=== PATIENT | male | born 2000 | race Caucasian/White ===

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

== ENCOUNTER 2020-08-22 10:58 | Emergency (ER) | payer OTHER ==
[~2020-08-22] VITALS: Wt 95.3 kg
[2020-08-22] MEDS ORDERED: CEFDINIR300 MG PO (12:23)
== END 2020-08-22 12:42 | disposition home or self-care (01) ==
LOC: ED 10:58
DX: H66.91 Otitis media, unspecified, right ear (principal); F17.200 Nicotine dependence, unspecified, uncomplicated; Z96.22 Myringotomy tube(s) status; Z88.1 Allergy status to other antibiotic agents; Z79.899 Other long term (current) drug therapy; Z98.890 Other specified postprocedural states

== ENCOUNTER 2021-01-28 17:20 | Emergency (ER) | payer OTHER ==
[~2021-01-28] VITALS: Ht 185.4 cm; Wt 90.7 kg
[~2021-01-28 17:20] MED LIST changes: +CEFDINIR300 MG PO
[2021-01-28] MEDS ORDERED: PROAIR HFA8.5 GM INH (18:24)
[2021-01-28] MEDS ORDERED: AMOXICILLIN875 MG PO (18:24)
== END 2021-01-28 19:19 | disposition home or self-care (01) ==
LOC: ED 17:20
DX: H66.91 Otitis media, unspecified, right ear (principal); Z20.822 Contact with and (suspected) exposure to COVID-19; J45.909 Unspecified asthma, uncomplicated

== ENCOUNTER 2021-04-16 19:43 | Emergency (ER) | payer SELFPAY ==
[~2021-04-16] VITALS: Ht 185.4 cm; Wt 92.5 kg
[~2021-04-16 19:43] MED LIST changes: +AMOXICILLIN875 MG PO
== END 2021-04-16 23:10 | disposition home or self-care (01) ==
LOC: ED 19:43
DX: S20.211A Contusion of right front wall of thorax, initial encounter (principal); Z88.1 Allergy status to other antibiotic agents; F17.200 Nicotine dependence, unspecified, uncomplicated; W01.0XXA Fall on same level from slipping, tripping and stumbling without subsequent striking against object, initial encounter; Y93.89 Activity, other specified; Y92.89 Other specified places as the place of occurrence of the external cause; Y99.8 Other external cause status

== ENCOUNTER 2021-06-13 10:07 | Emergency (ER) | payer OTHER ==
[~2021-06-13] VITALS: Wt 90.7 kg
[2021-06-13] MEDS ORDERED: SEPTDS PO (10:56)
== END 2021-06-13 11:41 | disposition home or self-care (01) ==
LOC: ED 10:07
DX: L08.9 Local infection of the skin and subcutaneous tissue, unspecified (principal); Z88.1 Allergy status to other antibiotic agents

== ENCOUNTER 2021-08-24 17:12 | Emergency (ER) | payer OTHER ==
[~2021-08-24] VITALS: Wt 90.7 kg
[~2021-08-24 17:12] MED LIST changes: +SEPTDS PO
== END 2021-08-24 17:36 | disposition left against medical advice (07) ==
LOC: ED 17:12
DX: T65.91XA Toxic effect of unspecified substance, accidental (unintentional), initial encounter (principal); Z53.21 Procedure and treatment not carried out due to patient leaving prior to being seen by health care provider; Y92.89 Other specified places as the place of occurrence of the external cause

== ENCOUNTER 2021-12-22 19:56 | Emergency (ER) | payer OTHER ==
[~2021-12-22] VITALS: Ht 185.4 cm; Wt 72.6 kg
[2021-12-22 21:36] LABS: BASO % 0.2 % (0.0-1.0); EOS # 0.2 10*3/uL (0.0-0.4); HEMATOCRIT 44.3 % (42.0-52.0); LYMPH # 2.8 10*3/uL (1.3-4.4); LYMPH % 30.5 % (27.0-41.0); MEAN CELL VOLUME 85.4 fl (80.0-94.0); MEAN CORPUSCULAR HGB 28.9 pg (27.0-31.0); MEAN CORPUSCULAR HGB CONC 33.9 g/dl (33.0-37.0); MONO # 0.7 10*3/uL (0.1-1.0); MONO % 7.8 % (3.0-9.0); NEUT # 5.5 10*3/uL (2.3-7.9); NEUT % 59.4 % (47.0-73.0); PLATELET COUNT AUTOMATED 239 10*3/uL (130-400); RED BLOOD COUNT 5.19 10*6/uL (4.50-5.90); RED CELL DISTRI WIDTH 12.6 % (0-14.5); WHITE BLOOD COUNT 9.2 10*3/uL (4.8-10.8)
[2021-12-22 21:46] LABS: ALKALINE PHOSPHATASE 115 U/L (45-117); BUN 12 mg/dl (7-24); CHLORIDE 109 mmol/L (98-107); CREATININE 0.59 mg/dL (0.70-1.30); POTASSIUM 3.9 mmol/L (3.5-5.1); SGOT/AST 9 IU/L (3-35); SGPT/ALT 21 U/L (12-78); SODIUM 140 mmol/L (136-145); TOTAL PROTEIN 7.1 gm/dL (6.4-8.2)
[2021-12-23] MEDS ORDERED: VIBRAMYCIN100 MG PO (00:03)
== END 2021-12-22 20:30 | disposition home or self-care (01) ==
LOC: ED 19:56
PROVIDERS: Physician Assistant
DX: J18.9 Pneumonia, unspecified organism (principal); Z20.822 Contact with and (suspected) exposure to COVID-19; Z88.1 Allergy status to other antibiotic agents

== ENCOUNTER 2022-04-09 10:48 | Emergency (ER) | payer OTHER ==
[~2022-04-09 10:48] MED LIST changes: +VIBRAMYCIN100 MG PO
== END 2022-04-09 11:49 | disposition left against medical advice (07) ==
LOC: ED 10:48
DX: M54.6 Pain in thoracic spine (principal); Z53.21 Procedure and treatment not carried out due to patient leaving prior to being seen by health care provider

== ENCOUNTER 2022-05-13 04:52 | Emergency (ER) | payer OTHER | END 2022-05-13 08:35 | disposition home or self-care (01) | LOC: ED 04:52 | DX: F15.10 Other stimulant abuse, uncomplicated (principal); Z88.1 Allergy status to other antibiotic agents ==

== ENCOUNTER 2022-05-21 23:21 | Emergency (ER) | payer OTHER | END 2022-05-22 00:20 | disposition left against medical advice (07) | LOC: ED 23:21 | DX: F10.129 Alcohol abuse with intoxication, unspecified (principal); K21.9 Gastro-esophageal reflux disease without esophagitis; J45.909 Unspecified asthma, uncomplicated; Z88.1 Allergy status to other antibiotic agents; Z98.890 Other specified postprocedural states; Y90.0 Blood alcohol level of less than 20 mg/100 ml ==

== ENCOUNTER 2022-09-27 16:51 | Emergency (ER) | payer OTHER ==
[~2022-09-27] VITALS: Wt 65.8 kg
[2022-09-28 06:08] LABS: HBSAG Negative (Negative); HEP B CORE AB, IGM Negative (Negative); HEPATITIS C ANTIBODY Non Reactive (Non Reactive)
== END 2022-09-27 17:47 | disposition home or self-care (01) ==
LOC: ED 16:51
PROVIDERS: Student in an Organized Health Care Education/Training Program
DX: F41.9 Anxiety disorder, unspecified (principal); J45.909 Unspecified asthma, uncomplicated; K21.9 Gastro-esophageal reflux disease without esophagitis; Z88.8 Allergy status to other drugs, medicaments and biological substances; Z98.890 Other specified postprocedural states

== ENCOUNTER 2023-04-13 15:35 | Emergency (ER) | payer OTHER | END 2023-04-13 16:09 | LOC: ED 15:35 | DX: F42.4 Excoriation (skin-picking) disorder (principal); F41.9 Anxiety disorder, unspecified; J45.909 Unspecified asthma, uncomplicated; Z88.1 Allergy status to other antibiotic agents; Z98.890 Other specified postprocedural states ==

== ENCOUNTER 2023-05-09 19:48 | Emergency (ER) | payer OTHER ==
[~2023-05-09] VITALS: Ht 2225 cm; Wt 86.2 kg
[2023-05-09] MEDS ORDERED: SEPTDS PO (20:07)
[2023-05-09] MEDS ORDERED: Sulfamethoxazole/Trimethopri 1 TAB TAB PO ONE (20:10)
== END 2023-05-09 20:49 | disposition home or self-care (01) ==
LOC: ED 19:48
DX: L08.9 Local infection of the skin and subcutaneous tissue, unspecified (principal); R23.8 Other skin changes; Z96.22 Myringotomy tube(s) status; Z98.890 Other specified postprocedural states

== ENCOUNTER → 2023-06-03 | Emergency (ER) | payer OTHER ==
[~2023-06-03] VITALS: Ht 185.4 cm; Wt 90.7 kg
== END ==
LOC: ED 17:39
DX: T40.411A Poisoning by fentanyl or fentanyl analogs, accidental (unintentional), initial encounter (principal); J45.909 Unspecified asthma, uncomplicated; K21.9 Gastro-esophageal reflux disease without esophagitis; Z98.890 Other specified postprocedural states; Y92.009 Unspecified place in unspecified non-institutional (private) residence as the place of occurrence of the external cause

== ENCOUNTER 2023-06-07 07:18 | Emergency (ER) | payer OTHER ==
[~2023-06-07] VITALS: Ht 185.4 cm; Wt 90.7 kg
== END 2023-06-07 07:38 | disposition left against medical advice (07) ==
LOC: ED 07:18
DX: S60.862A Insect bite (nonvenomous) of left wrist, initial encounter (principal); Z53.21 Procedure and treatment not carried out due to patient leaving prior to being seen by health care provider; W57.XXXA Bitten or stung by nonvenomous insect and other nonvenomous arthropods, initial encounter; Y93.89 Activity, other specified; Y92.89 Other specified places as the place of occurrence of the external cause; Y99.8 Other external cause status

== ENCOUNTER 2023-06-16 08:22 | Emergency (ER) | payer OTHER ==
[~2023-06-16] VITALS: Ht 180.3 cm; Wt 81.6 kg
== END 2023-06-16 09:10 | disposition home or self-care (01) ==
LOC: ED 08:22
DX: R45.1 Restlessness and agitation (principal); Z04.6 Encounter for general psychiatric examination, requested by authority; J45.909 Unspecified asthma, uncomplicated; K21.9 Gastro-esophageal reflux disease without esophagitis; Z98.890 Other specified postprocedural states

== ENCOUNTER 2024-05-24 09:12 | Emergency (ER) | payer OTHER ==
[~2024-05-24] VITALS: Ht 185.4 cm; Wt 90.7 kg
[2024-05-24] MEDS ORDERED: diazePAM 10 MG/2 ML SYR IV ONE (09:25)
[2024-05-24] MEDS ORDERED: SODIUM CHLORIDE 0.9% 1,000 ML IV ONE ×2 (09:25→10:50)
[2024-05-24 09:37] LABS: HEMATOCRIT 40.9 % (42.0-52.0); MANUAL DIFF REFLEX YES; MEAN CELL VOLUME 86.8 fl (80.0-94.0); MEAN CORPUSCULAR HGB 29.7 pg (27.0-31.0); MEAN CORPUSCULAR HGB CONC 34.2 g/dl (33.0-37.0); MEAN PLATELET VOLUME 9.7 fl (9.6-12.3); PLATELET COUNT AUTOMATED 217 10*3/uL (130-400); RED BLOOD COUNT 4.71 10*6/uL (4.50-5.90); RED CELL DISTRI WIDTH 11.9 % (0-14.5)
[2024-05-24] MEDS ORDERED: Ondansetron Hydrochloride 4 MG/2 ML VIAL IV ONE (09:50)
[2024-05-24 10:04] LABS: PLATELET SUFFICIENCY NORMAL (NORMAL); TOTAL CELLS COUNTED 100 #CELLS; VACUOLATION OF NEUTROPHILS SLIGHT
[2024-05-24 10:08] LABS: BUN 15 mg/dl (9-23); CHLORIDE 99 mmol/L (98-107); POTASSIUM 3.2 mmol/L (3.4-5.1)
[2024-05-24 10:27] LABS: CPK 2621 U/L (34-171)
[2024-05-24 10:36] LABS: URINE AMPHETAMINES Negative (1000ng/ml); URINE BARBITURATES Negative (200ng/ml); URINE BENZODIAZEPINES Negative (200ng/ml); URINE CANNABINOIDS (THC) Negative (50ng/ml); URINE COCAINE Positive (300ng/ml); URINE METHADONE Negative (300ng/ml); URINE OPIATES Negative (300ng/ml); URINE PHENCYCLIDINE Negative (25ng/ml)
[2024-05-24] MEDS ORDERED: POTASSIUM CHLORIDE 20 MEQ TAB PO ONE (10:40)
== END 2024-05-24 11:30 | disposition left against medical advice (07) ==
LOC: ED 09:12
PROVIDERS: Emergency Medicine
DX: S09.90XA Unspecified injury of head, initial encounter (principal); F14.10 Cocaine abuse, uncomplicated; E87.6 Hypokalemia; M62.82 Rhabdomyolysis; Z88.1 Allergy status to other antibiotic agents; Z98.890 Other specified postprocedural states; W22.01XA Walked into wall, initial encounter; Y93.89 Activity, other specified; Y92.89 Other specified places as the place of occurrence of the external cause; Y99.8 Other external cause status

== ENCOUNTER 2024-08-10 23:27 | Emergency (ER) | payer OTHER ==
[~2024-08-10] VITALS: Ht 182.8 cm; Wt 77.1 kg
[2024-08-11] MEDS ORDERED: Ketorolac Tromethamine 30 MG/ML VIAL IM ONE (00:15)
== END 2024-08-11 00:15 | disposition home or self-care (01) ==
LOC: ED 23:27
DX: H60.91 Unspecified otitis externa, right ear (principal); Z88.1 Allergy status to other antibiotic agents; Z98.890 Other specified postprocedural states

== ENCOUNTER 2025-01-23 10:01 | Emergency (ER) | payer OTHER ==
[~2025-01-23] VITALS: Wt 95.7 kg
[2025-01-23] MEDS ORDERED: NAPROSYN500 MG PO (12:02)
== END 2025-01-23 12:05 | disposition home or self-care (01) ==
LOC: ED 10:01
DX: S93.402A Sprain of unspecified ligament of left ankle, initial encounter (principal); S90.02XA Contusion of left ankle, initial encounter; K21.9 Gastro-esophageal reflux disease without esophagitis; J45.909 Unspecified asthma, uncomplicated; Z86.19 Personal history of other infectious and parasitic diseases; W22.8XXA Striking against or struck by other objects, initial encounter; Y93.89 Activity, other specified; Y92.89 Other specified places as the place of occurrence of the external cause; Y99.8 Other external cause status